=== PATIENT | female | born 1940 | race Caucasian/White ===

== ENCOUNTER 2016-06-17 06:49 | Emergency (ER) | payer MEDICAID, MEDICARE ==
[2016-06-17 07:02] VITALS: BMI 23.3
[2016-06-17] MEDS ORDERED: 2-OCTYL CYANOACRYLATE PEN TOP ONE (07:04)
[2016-06-17] MEDS ORDERED: MORPHINE 4 MG/ML INJECTION IM ONE (07:09)
--- NOTE | 2016-06-17 07:12 | EDPRACDOC ---
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 FROM [facility] VIA EMS. PT REPORTEDLY FELL FORWARD FROM A STANDING POSITION STRIKING LEFT PERIORBITAL FACE, RESULTING IN LACERATION. UNABLE TO ASSESS PAIN LEVEL. GILDARDO KIM (POA-DAUGHTER) [phone] SON RICHARD DAVIS [phone] Allergies/Adverse Reactions: Allergies No Known Allergies Allergy (Verified 07/14/14 12:22) Per [facility]. Home Medications: Ambulatory Orders Acetaminophen Ex Str Tablet [TYLENOL EXTRA STRENGTH Tablet] 1,000 mg PO Q4H PRN 05/22/14 Alprazolam [Xanax] 0.5 mg PO BID PRN 05/22/14 Aspirin (OrangeEnteric Coated) [Ecotrin] 325 mg PO .PRN CHEST PAIN PRN 05/22/14 Donepezil HCl [Aricept] 10 mg PO BID 05/22/14 Guaifenesin [Robitussin] 10 ml PO Q6H PRN 05/22/14 Hydrocortisone/Aloe Vera [Hydrocortisone-Aloe 0.5% Cream] 1 applic TP Q6H PRN Lisinopril [Zestril] 10 mg PO DAILY 05/22/14 Loperamide HCl [Imodium] 2 mg PO QID PRN 05/22/14 Magnesium Hydroxide [Milk of Magnesia] 30 ml PO DAILY PRN 05/22/14 Magnesium Hydroxide/Al Hydrox [Mylanta Liquid] 30 ml PO QID PRN 05/22/14 Memantine HCl [Namenda Xr] 28 mg PO DAILY 05/22/14 Neomy Sulf/Bacitrac Zn/Poly [Neosporin Antibiotic Ointment] 1 applic TP Q12H PRN 05/22/14 Vitamins, Multiple [Unicap] 1 cap PO DAILY 05/22/14 Citalopram (anti-depressant) [Celexa] 20 mg PO HS #60 tab 05/25/14 Diphenhydramine [Benadryl] 25 mg PO Q6H PRN 07/01/14 Mighty Shake 1 each PO TID 01/22/15 Mirtazapine [Remeron] 15 mg PO HS 07/01/14 Quetiapine Fumarate [Seroquel] 25 mg PO BID 07/01/14 Ciprofloxacin HCl [Cipro] 500 mg PO BID #14 tab 07/14/14 Levetiracetam [Keppra] 500 mg PO BID #60 tab 07/14/14 Mineral Oil/Petrolatum,White [Eucerin Creme] 120 gm TP BID #1 cream..g. ED Past Medical History - Patient Medical History Neurological History: Reports: Dementia Cardiac History: Reports: Hypertension, Hypercholesterolemia GI/ History: Reports: Gastroesophageal Reflux Musculoskeletal History: Reports: Osteoarthritis Psychological History: Reports: Depression, Anxiety. Denies: Substance Use Disorder Systemic History: Denies: Cancer - Family Medical History Reports: Stroke, Cardiac Disorders. Denies: Hypertension, Diabetes, Cancer - Social Medical History Smoking Status: Current status unknown Social History: Denies: Substance Use Disorder EDM Review of Systems - Review of Systems ROS Unobtainable: Yes Review of systems cannot be obtained due to the patient's medical condition - Physical Exam Constitutional: No apparent distress, Other (EYES CLOSED. RESISTS EYE OPENING) Last recorded Vital Signs: Last Vital Signs Temp 97.5 F 06/17/16 06:59 Pulse 77 06/17/16 06:59 Resp 22 06/17/16 06:59 BP 163/67 06/17/16 06:59 Pulse Ox 81 L 06/17/16 06:59 Oxygen Pulse Oxygen Saturation 81 O2 Device Room Air Oxygen Flow Rate Fraction of Inspired Oxygen ( FIO2) - HEENT Head: Normal Eye Exam: Other (RIGHT EYE WNL. UNABLE TO ASSESS LEFT EYE. PT RESISTING EXAM. LEFT PERIOBITAL EDEMA, ECCHYMOSIS. 1 CM LACERATION UNDER LEFT LATERAL EYEBROW) Nose: Other (DRIED BLOOD LEFT NARE, NO SEPTAL HEMATOMA) Neck: Normal - Respiratory/Cardiovascular Respiratory: Normal - CTA Cardiovascular: Normal - GI Tenderness: Non tender - Musculoskeletal Back: Normal Extremities: Other (NO PAIN WITH PASSIVE ROM. UNABLE TO TEST ACTIVE ROM.) - Integumentary Skin: Normal, Warm, Dry Lymphatics: Normal - Neurologic Memory Impaired: Unable to Test Motor Function: Unable to Test Cranial Nerve: Unable to Test Cerebellar: Unable to Test ED Procedures - Suture/Laceration Suture #1 Wound Length (cm): 1 (LEFT PERIORBITAL) Wound's Depth, Shape: superficial Wound Repaired With: Dermabond - Results 06/17/16 08:43 06/17/16 08:43 - EKG EKG #1 EKG Time: 09:09 -: Yes EKG interpreted by me Rate: bpm: 67 [place]: LAD Rhythm: NSR Block: None Hypertrophy: None ST: Normal Comments: ABNORMAL EKG - Additional Information 7030 D/W DR DEE OF [facility]TH[facility]. HE RECOMMENDS SURGICAL REPAIR IF PT WAS AMBULATORY. TRANSFER TO HIGHER LEVEL OF CARE DUE TO ACETABULAR FRACTURE IN DISCUSSION WITH SON AND DAUGHTER (POA), DECISION WAS MADE TO OPERATE IF POSSIBLE. - Departure Yes I personally saw and evaluated the patient. Disposition: Trans. to Other Hospital ([facility], [place], [facility]) Condition: Stable Final Diagnosis: Accidental fall, LAC REPAIR BY MUNGUIA Laceration of periorbital area Qualifiers: Encounter type: initial encounter Qualified Code(s): S01.81XA - Laceration without foreign body of other part of head, initial encounter Closed right acetabular fracture Qualifiers: Encounter type: initial encounter Sublocation of acetabulum: unspecified portion of acetabulum Fracture alignment: displaced Qualified Code(s): S32.401A - Unspecified fracture of right acetabulum, initial encounter for closed fracture Decision to Transfer Time: 10:43 (DR MARQUES ER ACCEPTS PT. )
--- NOTE | 2016-06-17 08:26 | DIRPT ---
CLINICAL DATA: Fall face forward from standing position at long-term this morning. Left eye injury/laceration. Altered mental status. Initial encounter. EXAM: CT HEAD WITHOUT CONTRAST CT MAXILLOFACIAL WITHOUT CONTRAST TECHNIQUE: Multidetector CT imaging of the head and maxillofacial structures were performed using the standard protocol without intravenous contrast. Multiplanar CT image reconstructions of the maxillofacial structures were also generated. COMPARISON: Head CT 07/01/2014 FINDINGS: CT HEAD FINDINGS Advanced, central predominant cerebral atrophy is unchanged. Periventricular white-matter hypodensities are unchanged and compatible with moderate chronic small vessel ischemic disease. There is no evidence of acute cortical infarct, intracranial hemorrhage, mass, midline shift, or extra-axial fluid collection. Orbits and surrounding soft tissues are evaluated below. The mastoid air cells are clear. No skull fracture is identified. CT MAXILLOFACIAL FINDINGS There is moderate left periorbital soft tissue swelling/hematoma. The globes appear intact. No retrobulbar hematoma is seen. No definite maxillofacial fracture is identified. There is minimal irregularity of the posterolateral wall of the left maxillary sinus without a discrete fracture identified and without retroantral fat stranding/hematoma. Small fluid levels are present in the left maxillary sinus, both sphenoid sinuses, and posterior ethmoid air cells bilaterally. IMPRESSION: 1. No evidence of acute intracranial abnormality. 2. Moderate chronic small vessel ischemic disease and cerebral atrophy. 3. Moderate left periorbital hematoma. No definite acute maxillofacial fracture identified. 4. Paranasal sinus fluid. Electronically Signed By: Carter Jacobo M.D. On: 06/17/2016 08:23
--- NOTE | 2016-06-17 08:26 | DIRPT ---
CLINICAL DATA: Patient status post fall. Right hip pain. Initial encounter. EXAM: RIGHT HIP (WITH PELVIS) 2-3 VIEWS COMPARISON: None. FINDINGS: There is complex right acetabular fracture with associated protrusio. There is a fracture through the right superior pubic ramus, mildly displaced. Additionally there is suggestion a right subcapital femoral neck fracture. Lumbar spine degenerative changes. Large amount of stool within the rectum. Mild left hip joint degenerative changes. IMPRESSION: There is complex right acetabular fracture as well as fracture through the right superior pubic ramus. Additionally there is suggestion of a nondisplaced fracture through the subcapital right femoral neck. Given the complexity of the fracture and relative osteopenia, recommend dedicated evaluation of the right hip and proximal femur with CT. Electronically Signed By: Otis Lima M.D. On: 06/17/2016 08:24
[2016-06-17 08:52] LABS: AUTOMATED BASOPHIL 0.2 % (0-2); AUTOMATED EOSINOPHIL 0.5 % (0-5); AUTOMATED LYMPH 9.1 % (17-44); AUTOMATED MONOCYTE 5.2 % (3-10); MPV 11.1 fL (7.4-10.4)
[2016-06-17 09:07] LABS: PT-INR 1.1
[2016-06-17 09:08] LABS: BLOOD UREA NITROGEN 19 MG/DL (7-17); CALC CORRECTED 9.5 MG/DL (8.4-10.2); CALCIUM 8.6 MG/DL (8.4-10.2); CALCULATED OSMOLALITY 279 MOs/Kg (270-290); CHLORIDE 109 mEq/L (98-107); GLUCOSE 141 MG/DL (70-99); SODIUM LEVEL 143 mEq/L (137-146); TOTAL PROTEIN 5.8 G/DL (6.3-8.2)
[2016-06-17 09:31] LABS: CPK TOTAL WITH POSSIBLE MB 114 IU/L (30-134)
--- NOTE | 2016-06-17 10:06 | DIRPT ---
CLINICAL DATA: Right acetabular fracture, status post fall. EXAM: CT OF THE LOWER RIGHT EXTREMITY WITHOUT CONTRAST TECHNIQUE: Multidetector CT imaging of the right hip was performed according to the standard protocol. COMPARISON: Plain film of the right hip from earlier same day. FINDINGS: There is a comminuted, both column, fracture of the right acetabulum with associated protrusio deformity. Most significantly displaced fracture fragments noted superiorly and medially. There is fracture extension into the peripheral portion of the right superior pubic ramus. No fracture seen within the inferior pubic ramus. Symphysis pubis remains well aligned. Very subtle deformity noted within the subcapital left femoral neck suspicious for nondisplaced femoral neck fracture. IMPRESSION: 1. Comminuted fractures of the right acetabulum, involving both columns, with associated protrusio deformity (approximately 8 mm protrusio). Most significantly displaced fracture fragments noted superiorly and centrally. Fracture extends into the peripheral portion of the right superior pubic ramus. No fracture within the inferior pubic ramus. 2. Probable nondisplaced right femoral neck fracture, subcapital region. This is not convincingly seen on all reconstructions. Could consider MRI to confirm. Electronically Signed By: Lon Leger M.D. On: 06/17/2016 10:03
[2016-06-17 12:33] VITALS: BP 133/67; PULSE 70; TEMP 98.4
== END 2016-06-17 12:10 | disposition short-term general hospital (02) ==
LOC: ED 06:49
DX: S01.81XA Laceration without foreign body of other part of head, initial encounter (principal); W18.39XA Other fall on same level, initial encounter; Y93.9 Activity, unspecified; Y92.129 Unspecified place in nursing home as the place of occurrence of the external cause
CPT/HCPCS: 12011; 36415; 70450; 70486; 73502; 73700; 80053; 82306; 82550; 84484; 85025; 85610; 85730; 93005; 96372; 99284; A9270; J2270; J3490